=== PATIENT | male | born 1970 | race Two or more races ===

== ENCOUNTER 2023-10-15 08:21 | Inpatient (IN) | payer MEDICAID ==
[~2023-10-15] VITALS: Ht 165.1 cm; Wt 72.8 kg
[~2023-10-15 08:21] MED LIST: AMLO1TAB23 PO; GABA-339 PO; HYDR-4072 PO; LISI20TA56 PO; MELO-335 PO; METF-372 PO; NALO1TAB4 PO; TIZA4CAP PO
[2023-10-15] MEDS: ceFAZolin 2 GM/D5W50ml 50 ML IV ONE (08:38)
[2023-10-15] MEDS ORDERED: DexAMETHasone SOD PHOS 10MG/1ML VIAL INJ ONE (08:55)
[2023-10-15] MEDS ORDERED: SODIUM CHLORIDE LOCK 10 ML ONE (08:55)
[2023-10-15] MEDS ORDERED: ONDANSETRON HCL 4 MG/2 ML VIAL ONE (08:55)
[2023-10-15] MEDS ORDERED: fentaNYL CITRATE 100 MCG/2 ML VL ONE (08:55)
[2023-10-15] MEDS ORDERED: EPINEPHrine HCL 1 MG/1 ML AMP ONE (08:55)
[2023-10-15] MEDS ORDERED: MIDAZOLAM HCL 2MG/2ML 2ml VIAL (1mg/ml) ONE (08:55)
[2023-10-15] MEDS ORDERED: PROPOFOL 10 MG/ML 20 ML IV ONE (08:55)
[2023-10-15] MEDS: TRANEXAMIC ACID 20 ML ONE (09:15)
[2023-10-15] MEDS ORDERED: MORPHINE SULF PF 5 MG/10 ML VIAL ONE (09:27)
[2023-10-15] MEDS ORDERED: KETOROLAC TROMETH 30 MG/ML 1ML VIAL ONE (09:27)
[2023-10-15] MEDS ORDERED: MORPHINE SULFATE INJ 2 MG/ml SYRG IV PRN ×2 (09:30→10:30)
[2023-10-15] MEDS ORDERED: HYDROmorphone HCL 2 MG/ML VL/or syr IV PRN ×2 (09:30)
[2023-10-15] MEDS ORDERED: METOCLOPRAMIDE HCL 5MG/ml INJ 2ml VIAL IV PRN (09:30)
[2023-10-15] MEDS: PREGABALIN CAPSULE 75 MG CAP ONE (09:31)
[2023-10-15] MEDS: CELECOXIB 100 MG CAP ONE (09:31)
[2023-10-15] MEDS ORDERED: BUPIVACAINE/DEXTROSE MPF 0.75% 2 ML AMP IT ONE (09:32)
[2023-10-15] MEDS: TETRACAINE 1% INJ 2 ML VIAL IJ ONE (09:34)
[2023-10-15] MEDS: ACETAMINOPHEN IV 100 ML IV ONE (09:53)
[2023-10-15] MEDS: ACETAMINOPHEN IV 1000 MG/100ML (10MG/ML) IV ONE (10:15)
[2023-10-15] MEDS: PREGABALIN CAPSULE 75 MG CAP PO ONE (10:15)
[2023-10-15] MEDS: CELECOXIB 100 MG CAP PO ONE (10:15)
[2023-10-15] MEDS: DexAMETHasone SOD PHOS 4 MG/1ML SDV INJ ONE (10:29)
[2023-10-15] MEDS ORDERED: DEXTROSE (50%) 50ML SYRG IV PRN (10:30)
[2023-10-15] MEDS ORDERED: NITROGLYCERIN 0.4 MG SL TAB SL PRN (10:30)
[2023-10-15] MEDS: LACTATED RINGER'S 1,000 ML IV SCH (10:30)
[2023-10-15] MEDS: ceFAZolin 1GM/50ML 50 ML IV SCH ×2 (10:30→17:47)
[2023-10-15] MEDS: VANCOMYCIN HCL 1000 MG VL ONE (10:50)
[2023-10-15] MEDS ORDERED: MEPERIDINE HCL (50 MG/ML) 1 ML VIAL ONE (11:03)
[2023-10-15] MEDS: BUPIVACAINE 0.25% INJ 50ML VIAL ONE (11:21)
[2023-10-15] MEDS: ACCU-CHEK COMFORT CURVE STRIP VI ONE (11:30)
[2023-10-15] MEDS: ACCU-CHEK COMFORT CURVE STRIP VI SCH (11:30)
[2023-10-15] MEDS: InsuLIN REG 1unit/0.01ml Soln (100units/ml) SC SCH ×2 (11:30→22:49)
[2023-10-15 11:55] VITALS: O2SAT 100
[2023-10-15] MEDS: HYDROmorphone HCL 2 MG/ML VL/or syr IV PRN (13:13)
[2023-10-15] MEDS: SODIUM CHLOR 0.9% PF (SALINE LOCK) 10ML VIAL/SYR IV SCH (14:00)
[2023-10-15 16:24] LABS: Potassium 3.9 mmol/L (3.5-5.1)
[2023-10-15 16:25] LABS: Calcium 8.9 mg/dL (8.5-10.1)
[2023-10-15 16:30] LABS: BUN/Creatinine Ratio 14.6 (10.0-20.0)
[2023-10-15 16:32] LABS: Albumin 4.3 g/dL (3.2-4.8); Phosphorus 2.7 mg/dL (2.4-5.1)
[2023-10-15 18:46] VITALS: BP 126/72; PULSE 92; RESP 18; TEMP 98; O2SAT 99
[2023-10-15 20:00] VITALS: PULSE 98; RESP 16; O2SAT 95
[2023-10-15] MEDS: ONDANSETRON HCL 4 MG/2 ML VIAL IV PRN (20:59)
[2023-10-15 22:00] VITALS: BP 119/72; PULSE 98; RESP 16; TEMP 98.8; O2SAT 95
[2023-10-15] MEDS: oxyCODONE ER 10 MG TAB PO SCH (22:11)
[2023-10-16 05:00] VITALS: BP 114/70; PULSE 82; RESP 16; TEMP 98; O2SAT 96
[2023-10-16 05:55] LABS: Basophils # (auto) 0 10 ^3/uL (0-0.2); Basophils % (auto) 0.1 % (0.0-2.0); Eosinophils # (auto) 0 10 ^3/uL (0-0.8); Hematocrit 35.8 % (41.0-53.0); Hemoglobin 12.1 g/dL (13.5-17.5); Lymphocytes # (auto) 0.9 10 ^3/uL (0.4-5.4); Lymphocytes % (auto) 6.8 % (10.0-50.0); Mean Corpuscular Hemoglobin 29.5 pg (28.0-32.0); Mean Corpuscular Hgb Conc. 33.8 g/dL (32.0-36.0); Mean Corpuscular Volume 87.3 fL (80.0-100.0); Monocytes % (auto) 7.1 % (0.0-12.0); Neutrophils # (auto) 11.9 10 ^3/uL (1.6-8.6); Red Cell Distribution Width 13.9 % (11.8-14.3); White Blood Cell 13.8 10^3/uL (4.4-10.8)
[2023-10-16 06:13] LABS: Alanine Aminotransferase 23 U/L (7-40); Albumin 3.8 g/dL (3.2-4.8); Alkaline Phosphatase 83 U/L (46-116); Anion Gap 5 (5-15); Aspartate Aminotransferase 43 U/L (13-40); BUN/Creatinine Ratio 13.8 (10.0-20.0); Bilirubin, Total 0.9 mg/dL (0.2-1.0); Blood Urea Nitrogen 16 mg/dL (9-23); Calcium 8.7 mg/dL (8.5-10.1); Carbon Dioxide 27 mmol/L (20-30); Chloride 100 mmol/L (98-107); Glucose 147 mg/dL (74-106); Total Protein 5.6 g/dL (5.7-8.2)
[2023-10-16 06:14] LABS: Sodium 132 mmol/L (136-145)
[2023-10-16 08:00] VITALS: PULSE 92; RESP 20; O2SAT 95
[2023-10-16 08:47] VITALS: BP 119/66; PULSE 92; RESP 20; TEMP 98.3; O2SAT 95
[2023-10-16] MEDS: ENOXAPARIN SOD 40 MG/0.4 ML SYRINGE SC SCH (10:19)
[2023-10-16] MEDS: amLODIPine BESYLATE 5 MG TAB PO SCH (10:20)
[2023-10-16 12:44] VITALS: BP 117/63; PULSE 91; RESP 20; TEMP 98.4; O2SAT 95
[2023-10-16 17:08] VITALS: BP 128/75; PULSE 91; RESP 20; TEMP 98.4; O2SAT 95
[2023-10-16 21:49] VITALS: BP 118/69; PULSE 92; RESP 20; TEMP 98.2; O2SAT 95
[2023-10-17 04:54] VITALS: BP 120/69; PULSE 86; RESP 20; TEMP 98; O2SAT 97
[2023-10-17] MEDS: OXYCODONE W/ ACETAMINOPHEN 5/325MG TABLET PO PRN (08:05)
[2023-10-17 08:14] VITALS: BP 120/69; PULSE 86; RESP 20; TEMP 98; O2SAT 97
[2023-10-17 08:25] VITALS: BP 128/74; PULSE 91; RESP 20; TEMP 98.9; O2SAT 94
[2023-10-17 13:19] VITALS: BP 122/71; PULSE 89; RESP 20; TEMP 98.5; O2SAT 95
== END 2023-10-17 14:58 | disposition home health service (06) | DRG 324 ==
LOC: SUR 08:21 → OVERFLOW 10:24 → WEST WING 17:57
PROVIDERS: ADMIT Orthopaedic Surgery Adult Reconstructive Orthopaedic Surgery; ATTEND Internal Medicine
PROC: 8E0YXBZ Computer Assisted Procedure of Lower Extremity (ICD-10-PCS; 2023-10-15)
PROC: 0SRB06Z Replacement of Left Hip Joint with Oxidized Zirconium on Polyethylene Synthetic Substitute, Open Approach (ICD-10-PCS; principal; 2023-10-15 09:55)
DX: M16.12 Unilateral primary osteoarthritis, left hip (principal); E11.40 Type 2 diabetes mellitus with diabetic neuropathy, unspecified; I10 Essential (primary) hypertension; G89.29 Other chronic pain; Z79.4 Long term (current) use of insulin
CPT/HCPCS: 36415; 72170; 80053; 80069; 82962; 83036; 85025; 85049; 86850; 86900; 86901; 97110; 97116; 97163; 97530; A4565; C1713; G0378; J0131; J0171; J1100; J1815; J1885; J2250; J2405; J2704; J3490